=== PATIENT | female | born 1960 | race Caucasian/White ===

== ENCOUNTER 2016-06-21 21:09 | Emergency (ER) | payer SELFPAY ==
--- NOTE | 2016-06-30 13:49 | ER ---
ADMIT: 06/21/2016 RM/LOC: ER [facility] MR#: [id number] [facility] [address] [place], [place] [id number] [address] [facility] [address] [place] [id number] Emergency Room Report SEX: F AGE: 56 : 1960 DATE: 06/21/2016 ADDENDUM: CHIEF COMPLAINT: Vomiting. HISTORY OF PRESENT ILLNESS: This is a 56-year-old female, who started vomiting about 5 hours ago, has abdominal pain on bilateral sides of her abdomen. COURSE IN THE EMERGENCY ROOM: CBC and BMP were done initially. Overall findings; her white count was slightly elevated at 11.1. Her BMP showed a potassium of 2.8 and glucose 145, otherwise normal. I encouraged the patient to take p.o. potassium after she had not vomited once here in the emergency room, she refused to take it, so at that time, I did order potassium 20 mEq and a 500 mL of normal saline to give over 2 hours. She is receiving this at that time. CT of her abdomen was done, is negative for any acute findings. H. pylori test was also ordered and pending at this time. The patient will be discharged home, have her push fluids and follow up with her primary care physician or gastrologist to further investigate her abdominal pain and nausea, vomiting. VELIA Salinas / Naresh Lambert MD / charo JOB #: [id number] CC: Naresh Lambert MD, Attending Physician Muna Graf APRN, Family Physician
== END 2016-06-22 03:00 | disposition home or self-care (01) ==
LOC: ER 21:09
DX: R11.0 Nausea (principal); R10.84 Generalized abdominal pain; I10 Essential (primary) hypertension; E03.9 Hypothyroidism, unspecified; E78.00 Pure hypercholesterolemia, unspecified; Z88.2 Allergy status to sulfonamides; Z91.040 Latex allergy status; Z79.899 Other long term (current) drug therapy